=== PATIENT | male | born 1960 | race Two or more races ===

== ENCOUNTER 2022-05-18 01:53 | Emergency (ER) | payer OTHER ==
[~2022-05-18] VITALS: Ht 172.7 cm; Wt 65.8 kg
[2022-05-18] MEDS ORDERED: MYFORTIC180 MG (02:03)
[2022-05-18] MEDS ORDERED: CARVEDILOL ER40 MG (02:03)
[2022-05-18] MEDS ORDERED: ENVARSUS XR1 MG (02:04)
[2022-05-18] MEDS ORDERED: SODIUM BICARBO650 MG (02:05)
[2022-05-18] MEDS ORDERED: LASIX40 MG (02:05)
[2022-05-18] MEDS ORDERED: RAYOS5 MG (02:05)
[2022-05-18] MEDS ORDERED: ULORIC40 MG (02:06)
[2022-05-18] MEDS ORDERED: CIPRO500 MG PO (06:43)
[2022-05-18] MEDS ORDERED: PYRIDIUM DS200 MG PO (06:43)
[2022-05-18] MEDS ORDERED: TRAMADOL HCL50 MG PO (06:48)
== END 2022-05-18 07:33 ==
LOC: ER 01:53
DX: N39.0 Urinary tract infection, site not specified (principal); Z88.5 Allergy status to narcotic agent